=== PATIENT | male | born 1990 | race African-American/Black ===

== ENCOUNTER 2017-10-03 10:38 | Emergency (ER) | payer MEDICAID ==
[~2017-10-03] VITALS: Ht 182.9 cm; Wt 83.0 kg
[2017-10-03 11:32] VITALS: BP 142/92
== END 2017-10-03 19:30 | disposition left against medical advice (07) ==
LOC: ER 12:17
DX: Z53.21 Procedure and treatment not carried out due to patient leaving prior to being seen by health care provider (principal)

== ENCOUNTER 2017-10-04 09:39 | Emergency (ER) | payer MEDICAID ==
[~2017-10-04] VITALS: Ht 180.3 cm; Wt 73.0 kg
[2017-10-04 15:30] VITALS: BP 124/74
== END 2017-10-04 16:47 | disposition home or self-care (01) ==
LOC: ER 09:39
DX: F20.9 Schizophrenia, unspecified (principal); F17.200 Nicotine dependence, unspecified, uncomplicated; F12.10 Cannabis abuse, uncomplicated
CPT/HCPCS: 99284

== ENCOUNTER 2021-08-26 10:22 | Emergency (ER) | payer MEDICAID ==
[~2021-08-26] VITALS: Ht 180.3 cm; Wt 80.0 kg
[2021-08-26 10:36] VITALS: BP 118/78
[2021-08-26] MEDS ORDERED: ACETAMINOPHEN 325MG TABLET PO ONE (11:30)
[2021-08-26] MEDS ORDERED: IBUP-2028 MT (14:06)
[2021-08-27] MEDS ORDERED: IBUP-2028 MT (08:53)
== END 2021-08-26 15:54 | disposition home or self-care (01) ==
LOC: ER 10:22
DX: M79.672 Pain in left foot (principal); M79.671 Pain in right foot
CPT/HCPCS: 73630; 99283

== ENCOUNTER 2021-08-27 05:02 | Emergency (ER) | payer MEDICAID ==
[~2021-08-27] VITALS: Ht 154.9 cm; Wt 75.0 kg
[~2021-08-27 05:02] MED LIST: IBUP-2028 MT
[2021-08-27] MEDS ORDERED: ONDANSETRON 4MG ODT PO ONE (08:15)
[2021-08-27] MEDS ORDERED: IBUPROFEN 400MG TABLET PO ONE (08:15)
[2021-08-27 08:29] VITALS: BP 123/85
[2021-08-27] MEDS ORDERED: IBUP-2028 MT (08:53)
== END 2021-08-27 09:20 | disposition home or self-care (01) ==
LOC: ER 05:16
DX: M79.18 Myalgia, other site (principal); F20.9 Schizophrenia, unspecified; K50.90 Crohn's disease, unspecified, without complications; F12.10 Cannabis abuse, uncomplicated; F17.210 Nicotine dependence, cigarettes, uncomplicated
CPT/HCPCS: 99283; Q0162

== ENCOUNTER 2021-08-27 17:54 | Emergency (ER) | payer MEDICAID ==
[~2021-08-27] VITALS: Ht 180.3 cm; Wt 84.0 kg
[2021-08-27 17:58] VITALS: BP 139/84
== END 2021-08-27 22:13 | disposition left against medical advice (07) ==
LOC: ER 17:54
DX: Z53.21 Procedure and treatment not carried out due to patient leaving prior to being seen by health care provider (principal)
CPT/HCPCS: 93005

== ENCOUNTER 2021-08-29 01:47 | Emergency (ER) | payer MEDICAID ==
[~2021-08-29] VITALS: Ht 180.3 cm; Wt 84.0 kg
[2021-08-29 01:58] VITALS: BP 147/96
[2021-08-29 02:49] LABS: BASOPHILS % 0.8 % (0.0-2.0); EOSINOPHILS % 0.1 % (0.0-5.0); HEMATOCRIT. 47.8 % (42.0-52.0); HEMOGLOBIN. 16.1 g/dL (14.0-18.0); LYMPHOCYTES % 38.6 % (20.0-50.0); MEAN CORPUSCULAR HEMOGLOBIN 32.7 pg (28.0-32.0); MEAN CORPUSCULAR VOLUME 96.8 fL (80.0-94.0); MEAN PLATELET VOLUME 8.6 fl (7.4-10.4); MONOCYTES % 7.8 % (2.0-8.0); NEUTROPHILS % 52.7 % (40.0-76.0); PLATELET 138 x1000/uL (130-400); RED BLOOD CELL COUNT 4.94 mill/uL (4.7-6.1); RED CELL DISTRIBUTION WIDTH 15.9 % (11.6-14.6)
[2021-08-29 02:56] LABS: CHLORIDE 99 mEq/L (98-107)
[2021-08-29 03:00] LABS: ETHANOL BLOOD 203 mg/dL
[2021-08-29 05:48] LABS: CLARITY URINE CLEAR (CLEAR); COLOR URINE DARK YELLOW (YELLOW); KETONES URINE TRACE (NEGATIVE); LEUKOCYTE ESTERASE URINE NEGATIVE (NEGATIVE); NITRITE URINE NEGATIVE (NEGATIVE); OCCULT BLOOD URINE NEGATIVE (NEGATIVE); PH URINE 5.5 (4.5-8.0); PROTEIN URINE 1+ (NEGATIVE); SPECIFIC GRAVITY URINE 1.031 (1.005-1.030)
[2021-08-29 06:54] LABS: *AMPHETAMINES SCREEN URINE NEGATIVE (NEGATIVE); *BARBITURATES SCREEN URINE NEGATIVE (NEGATIVE); *BENZODIAZEPINES SCREEN URINE NEGATIVE (NEGATIVE)
[2021-08-29 06:55] LABS: *COCAINE SCREEN URINE NEGATIVE (NEGATIVE); METHADONE URINE SCREEN NEGATIVE (NEGATIVE); OPIATES URINE SCREEN NEGATIVE (NEGATIVE); PHENCYCLIDINE URINE SCREEN NEGATIVE (NEGATIVE)
[2021-08-29 06:56] LABS: CANNABINOID URINE SCREEN PRESUMTIVE POSITIVE (NEGATIVE)
[2021-08-29] MEDS ORDERED: TOPUD PO (08:39)
[2021-08-29] MEDS ORDERED: OLANZAPINE 5MG TABLET PO SCH (09:00)
== END 2021-08-29 09:18 | disposition home or self-care (01) ==
LOC: ER 02:11
DX: U07.1 COVID-19 (principal); F20.9 Schizophrenia, unspecified; F12.10 Cannabis abuse, uncomplicated; Z59.00 Homelessness unspecified
CPT/HCPCS: 36415; 71045; 80053; 80305; 80307; 80320; 80329; 81003; 85025; 99284; C9803; U0003; U0005; G0480

== ENCOUNTER 2025-07-04 22:48 | Emergency (ER) | payer MEDICAID, OTHER ==
[~2025-07-04] VITALS: Ht 180.3 cm; Wt 114.0 kg
[~2025-07-04 22:48] MED LIST changes: +TOPUD PO
[2025-07-04 22:56] VITALS: O2SAT 99
[2025-07-04] MEDS ORDERED: ZIPRASIDONE MESYLATE 20MG/VIAL IM ONE (23:30)
[2025-07-04] MEDS ORDERED: CLONIDINE 0.2MG TABLET PO ONE (23:30)
[2025-07-04 23:49] LABS: BASOPHILS % 1.1 % (0.0-2.0); EOSINOPHILS % 0.1 % (0.0-5.0); HEMATOCRIT. 44.8 % (42.0-52.0); HEMOGLOBIN. 15.1 g/dL (14.0-18.0); LYMPHOCYTES % 22.3 % (20.0-50.0); MEAN PLATELET VOLUME 8.4 fl (7.4-10.4); MONOCYTES % 6.3 % (2.0-8.0); NEUTROPHILS % 70.2 % (40.0-76.0); PLATELET 212 x1000/uL (130-400); RED BLOOD CELL COUNT 4.66 mill/uL (4.7-6.1); RED CELL DISTRIBUTION WIDTH 15.4 % (11.6-14.6)
[2025-07-05 00:09] LABS: CREATININE 1.1 mg/dL (0.6-1.3); UREA NITROGEN BLOOD < 5 mg/dL (9-23)
[2025-07-05 00:10] LABS: ETHANOL BLOOD < 10 mg/dL (<10)
[2025-07-05] MEDS: ZIPRASIDONE MESYLATE 20MG/VIAL IM NR (00:20)
[2025-07-05] MEDS: CLONIDINE 0.1MG TABLET PO NR (00:27)
[2025-07-05 04:20] LABS: *AMPHETAMINES SCREEN URINE NEGATIVE (NEGATIVE); *BENZODIAZEPINES SCREEN URINE NEGATIVE (NEGATIVE)
[2025-07-05 04:21] LABS: *BARBITURATES SCREEN URINE NEGATIVE (NEGATIVE); *COCAINE SCREEN URINE NEGATIVE (NEGATIVE); CANNABINOID URINE SCREEN NEGATIVE (NEGATIVE); ECSTASY MDMA SCREEN URINE NEGATIVE (NEGATIVE); METHADONE URINE SCREEN NEGATIVE (NEGATIVE); OPIATES URINE SCREEN NEGATIVE (NEGATIVE); PHENCYCLIDINE URINE SCREEN NEGATIVE (NEGATIVE)
[2025-07-05] MEDS: ZIPRASIDONE HCL 20MG CAPSULE PO SCH (10:15)
[2025-07-05] MEDS ORDERED: HYDRALAZINE HCL 50MG TABLET PO ONE (13:15)
[2025-07-05] MEDS: HYDRALAZINE HCL 25MG TABLET PO NR (17:20)
[2025-07-05 18:48] VITALS: BP 142/88; PULSE 78; RESP 18; TEMP 36.8; O2SAT 98
== END 2025-07-05 18:49 ==
LOC: ER 22:48
DX: R44.0 Auditory hallucinations (principal); F10.10 Alcohol abuse, uncomplicated; I10 Essential (primary) hypertension; Z59.01 Sheltered homelessness; Z91.148 Patient's other noncompliance with medication regimen for other reason
CPT/HCPCS: 80048; 80320; 85025; 36415; 93005; 99285; 80305; 96372; 87426; J3486; G0480